=== PATIENT | female | born 1945 | race Hispanic/Latino ===

== ENCOUNTER → 2018-01-30 | Outpatient (CLI) | payer OTHER ==
[~2018-01-30] MED LIST: ATOR10 PO; LATA2.5D2 OP; LISI-613 PO; [UNRECOGNIZED DRUG - CODE] PO; [UNRECOGNIZED DRUG - OTHER] PO
== END | disposition home or self-care (01) ==
LOC: SHCH 15:18
PROVIDERS: ATTEND Internal Medicine Cardiovascular Disease
DX: I50.9 Heart failure, unspecified (principal); I34.0 Nonrheumatic mitral (valve) insufficiency
CPT/HCPCS: 93306

== ENCOUNTER → 2018-02-13 | Outpatient (CLI) | payer OTHER | END | disposition home or self-care (01) | LOC: SHCH 12:56 | PROVIDERS: ATTEND Internal Medicine Cardiovascular Disease | DX: I87.2 Venous insufficiency (chronic) (peripheral) (principal) | CPT/HCPCS: 93970 ==

== ENCOUNTER → 2018-11-20 | Outpatient (CLI) | payer OTHER | END | disposition home or self-care (01) | LOC: RAH 14:59 | PROVIDERS: ATTEND Family Medicine | DX: Z12.31 Encounter for screening mammogram for malignant neoplasm of breast (principal) | CPT/HCPCS: 77067 ==

== ENCOUNTER → 2019-10-22 | Outpatient (CLI) | payer OTHER, MEDICARE ==
[~2019-10-22] MED LIST changes: +AMLO5TAB9 PO; -ATOR10 PO; -LISI-613 PO; +METF-805 PO; +NITR100C4 PO; -[UNRECOGNIZED DRUG - OTHER] PO
== END | disposition home or self-care (01) ==
LOC: RAH 07:55
PROVIDERS: ATTEND Internal Medicine Gastroenterology
DX: R16.0 Hepatomegaly, not elsewhere classified (principal); K76.0 Fatty (change of) liver, not elsewhere classified; N28.1 Cyst of kidney, acquired; Z90.49 Acquired absence of other specified parts of digestive tract
CPT/HCPCS: 76700

== ENCOUNTER → 2020-10-31 | Outpatient (CLI) | payer OTHER ==
[~2020-10-31] MED LIST changes: +AMLO-257 PO; -AMLO5TAB9 PO; +LATA2.5D14 OP; -LATA2.5D2 OP; -METF-805 PO; +METF-890 PO
== END | disposition home or self-care (01) ==
LOC: RAH 10:00
PROVIDERS: ATTEND Internal Medicine Cardiovascular Disease
DX: Z13.6 Encounter for screening for cardiovascular disorders (principal)
CPT/HCPCS: 75571

== ENCOUNTER → 2020-11-23 | Outpatient (CLI) | payer OTHER | END | disposition home or self-care (01) | LOC: RAH 14:58 | PROVIDERS: ATTEND Internal Medicine Cardiovascular Disease | DX: Z13.6 Encounter for screening for cardiovascular disorders (principal); I25.10 Atherosclerotic heart disease of native coronary artery without angina pectoris | CPT/HCPCS: 75571 ==

== ENCOUNTER → 2021-01-01 | Outpatient (CLI) | payer OTHER ==
[~2021-01-01] VITALS: Ht 152.4 cm; Wt 76.2 kg
[~2021-01-01] MED LIST changes: +REGADENOSON 0.4 MG/5 ML PF SYG IVP SCH
== END | disposition home or self-care (01) ==
LOC: SHCH 08:30
PROVIDERS: ATTEND Internal Medicine Cardiovascular Disease
DX: I25.10 Atherosclerotic heart disease of native coronary artery without angina pectoris (principal)
CPT/HCPCS: 78452; 93017; 96374; A9500 ×2

== ENCOUNTER 2021-03-05 09:18 | Observation (INO) | payer OTHER ==
[2021-03-01 10:03] LABS: APPEARANCE,URINE Clear (CLEAR); BILIRUBIN,URINE Negative (NEGATIVE); COLOR,URINE Yellow (YELLOW); GLUCOSE, URINE (UA) Negative (NEGATIVE); KETONES,URINE Negative (NEGATIVE); LEUKOCYTE ESTERASE ,URINE Trace (NEGATIVE); NITRATE,URINE Negative (NEGATIVE); OCCULT BLOOD,URINE Negative (NEGATIVE); PROTEIN,URINE Negative (NEGATIVE); UROBILINOGEN,URINE 0.2 mg/dL (0.2-1.0)
[2021-03-01 10:05] LABS: CREATININE 0.6 mg/dL (0.5-1.5); POTASSIUM 3.9 mmol/L (3.5-5.1)
[2021-03-01 10:23] LABS: INR 1.01 (0.85-1.15)
[2021-03-01 11:15] LABS: BACTERIA,URINE Rare /HPF (None Seen); RBC,URINE None Seen /HPF (0-1); SQUAMOUS EPITHELIAL CELL,UR Rare /HPF (0-2)
[2021-03-02 15:40] VITALS: BP 175/87
[~2021-03-05] VITALS: Ht 152.4 cm; Wt 74.8 kg
[2021-03-05] VITALS (17 sets, daily range): BP systolic 113–155; BP diastolic 54–76
[~2021-03-05 09:18] MED LIST changes: +ALEN70TA80 PO; -LATA2.5D14 OP; +LISI-809 PO; -NITR100C4 PO; +PILO15DR48 OS; -REGADENOSON 0.4 MG/5 ML PF SYG IVP SCH; -[UNRECOGNIZED DRUG - CODE] PO; +[UNRECOGNIZED DRUG - OTHER] PO
[2021-03-05] MEDS ORDERED: 0.9%NACL 1000ML 1,000 ML IV ONE (10:07)
[2021-03-05] MEDS: CEFAZOLIN SODIUM 1 GM VIAL IVP SCH ×4 (10:37→20:24)
[2021-03-05] MEDS ORDERED: ONDANSETRON 4MG INJ ONE (12:39)
[2021-03-05] MEDS ORDERED: LIDOCAINE PF 100MG/5ML (2%) SYRINGE 5ML ONE (12:39)
[2021-03-05] MEDS ORDERED: DEXAMETHASONE SOD PHOSPHATE 10MG/ML 1ML VIAL ONE (12:39)
[2021-03-05] MEDS ORDERED: GLYCOPYRROLATE 1 MG/5 ML SYRINGE ONE (12:39)
[2021-03-05] MEDS ORDERED: PROPOFOL 10 MG/ML 20ML VIAL IV ONE (12:39)
[2021-03-05] MEDS ORDERED: SUCCINYLCHOLINE CHLORIDE 20 MG/ML 10 ML VIAL ONE (12:39)
[2021-03-05] MEDS ORDERED: MIDAZOLAM HCL 1 MG/ML 2ML VIAL ONE (12:40)
[2021-03-05] MEDS ORDERED: FENTANYL CITRATE PF 50 MCG/1 ML 2ML VIAL ONE ×2 (12:40→15:17)
[2021-03-05] MEDS ORDERED: NEOSTIGMINE 5MG/5ML SYR IV ONE (12:40)
[2021-03-05] MEDS ORDERED: ROCURONIUM 10MG/1ML SYR 10 MG/ML ML ONE ×2 (12:40→15:11)
[2021-03-05] MEDS ORDERED: ROPIVACAINE 0.5% 5MG/ML 30ML IJ ONE (12:42)
[2021-03-05] MEDS ORDERED: TRANEXAMIC ACID 1000MG/10ML ONE ×2 (13:26→17:19)
[2021-03-05] MEDS ORDERED: CEFAZOLIN SODIUM 1 GM VIAL ONE ×2 (13:26→19:44)
[2021-03-05] MEDS ORDERED: OXYMETAZOLINE HCL SPRAY 15 ML BOTTLE ONE (15:16)
[2021-03-05] MEDS ORDERED: CALCIUM CARB 500MG PO PRN (16:45)
[2021-03-05] MEDS ORDERED: TRAMADOL HCL 50 MG TABLET PO PRN (16:45)
[2021-03-05] MEDS ORDERED: OXYCODONE HCL 5 MG TAB PO PRN ×2 (16:45)
[2021-03-05] MEDS ORDERED: TEMAZEPAM 15 MG CAPSULE PO PRN (16:45)
[2021-03-05] MEDS ORDERED: POTASSIUM CHLORIDE 20MEQ/100ML 100 ML IV PRN (16:45)
[2021-03-05] MEDS ORDERED: ONDANSETRON 4MG INJ IVP PRN (16:45)
[2021-03-05] MEDS ORDERED: POTASSIUM CHLORIDE 10% ELIXIR 20 MEQ/15 ML UDCUP PO PRN (16:45)
[2021-03-05] MEDS ORDERED: DiphenhydrAMINE HCL 50 MG/ML VIAL IVP PRN (16:45)
[2021-03-05] MEDS ORDERED: FERROUS FUMARATE 324 MG TABLET PO PRN (16:45)
[2021-03-05] MEDS ORDERED: KETOROLAC 15MG/ML VIAL (15MG/ML) IV PRN (16:45)
[2021-03-05] MEDS ORDERED: LIDOCAINE HCL-MPF 1% 2ML VIAL IV PRN (16:45)
[2021-03-05] MEDS ORDERED: KCL 20 MEQ ERTAB PO PRN (16:45)
[2021-03-05] MEDS ORDERED: 0.9%NACL 1000ML 1,000 ML IV SCH (16:45)
[2021-03-05] MEDS ORDERED: MEPERIDINE-PF 25 MG/ML SYG ONE ×2 (17:20→17:31)
[2021-03-05] MEDS: CELECOXIB 200 MG CAP PO SCH (20:33)
[2021-03-05] MEDS: NITROFURANTOIN MONOHYD/M-CRYST 100 MG CAPSULE PO SCH (20:33)
[2021-03-05] MEDS: FAMOTIDINE 20MG TAB PO SCH (20:33)
[2021-03-05] MEDS: ASPIRIN 81MG CHEW TAB PO SCH (20:33)
[2021-03-05] MEDS: PREGABALIN 25 MG CAP PO SCH (20:33)
[2021-03-05] MEDS: ACETAMINOPHEN 500 MG TABLET PO SCH (20:34)
[2021-03-05] MEDS: INSULIN HUMULIN R 100 UNIT/ML 3ML SQ SCH (20:34)
[2021-03-05] MEDS: PILOCARPINE HCL 2% 15 ML DROPS OS SCH (20:41)
[2021-03-05] MEDS: METFORMIN HCL 500 MG TAB.SR.24H PO SCH (20:41)
[2021-03-06] MEDS: ACETAMINOPHEN 500 MG TABLET PO SCH ×4 (00:08→23:11)
[2021-03-06] MEDS: CEFAZOLIN SODIUM 1 GM VIAL IVP SCH (05:45)
[2021-03-06 06:34] VITALS: BP 113/53
[2021-03-06] MEDS: INSULIN HUMULIN R 100 UNIT/ML 3ML SQ SCH ×4 (06:34→19:44)
[2021-03-06 06:36] LABS: CREATININE 0.7 mg/dL (0.5-1.5); POTASSIUM 4.2 mmol/L (3.5-5.1)
[2021-03-06 06:47] LABS: MEAN CORPUSCULAR HEMOGLOBIN 30.9 pg (27.0-33.0); MEAN CORPUSCULAR HGB CONC 33.9 g/dL (32.0-36.0); MEAN CORPUSCULAR VOLUME 91.2 fL (79-99); RED BLOOD CELL COUNT(AUTO) 3.62 MIL/uL (4.00-5.50); RED CELL DISTRIBUTION WIDTH 12.5 % (11.0-15.5); WHITE BLOOD COUNT (AUTO) 9.3 K/uL (4.8-10.8)
[2021-03-06 08:00] VITALS: BP 130/61
[2021-03-06] MEDS: [UNRECOGNIZED DRUG - OTHER] PO SCH (09:00)
[2021-03-06] MEDS: CELECOXIB 200 MG CAP PO SCH ×2 (09:50→20:13)
[2021-03-06] MEDS: PREGABALIN 25 MG CAP PO SCH ×2 (09:50→20:14)
[2021-03-06] MEDS: LISINOPRIL 5 MG TABLET PO SCH (09:51)
[2021-03-06] MEDS: AMLODIPINE 5 MG TAB PO SCH (09:51)
[2021-03-06] MEDS: ASPIRIN 81MG CHEW TAB PO SCH ×2 (09:51→20:13)
[2021-03-06] MEDS: FAMOTIDINE 20MG TAB PO SCH ×2 (09:52→20:14)
[2021-03-06] MEDS: NITROFURANTOIN MONOHYD/M-CRYST 100 MG CAPSULE PO SCH ×2 (09:52→20:14)
[2021-03-06] MEDS: POLYETHYLENE GLYCOL 3350 17 GM POWD.PACK PO SCH (09:52)
[2021-03-06] MEDS: PILOCARPINE HCL 2% 15 ML DROPS OS SCH ×4 (09:53→20:14)
[2021-03-06 12:00] VITALS: BP 115/46
[2021-03-06 16:00] VITALS: BP 137/46
[2021-03-06 20:09] VITALS: BP 127/52
[2021-03-06] MEDS: METFORMIN HCL 500 MG TAB.SR.24H PO SCH (20:13)
[2021-03-06 23:29] VITALS: BP 129/53
[2021-03-07 04:12] VITALS: BP 129/49
[2021-03-07] MEDS: ACETAMINOPHEN 500 MG TABLET PO SCH (05:07)
[2021-03-07] MEDS: INSULIN HUMULIN R 100 UNIT/ML 3ML SQ SCH ×2 (05:27→11:30)
[2021-03-07 07:19] VITALS: BP 138/46
[2021-03-07] MEDS: FAMOTIDINE 20MG TAB PO SCH (08:40)
[2021-03-07] MEDS: ASPIRIN 81MG CHEW TAB PO SCH (08:41)
[2021-03-07] MEDS: [UNRECOGNIZED DRUG - OTHER] PO SCH (08:41)
[2021-03-07] MEDS: POLYETHYLENE GLYCOL 3350 17 GM POWD.PACK PO SCH (08:41)
[2021-03-07] MEDS: CELECOXIB 200 MG CAP PO SCH (08:41)
[2021-03-07] MEDS: NITROFURANTOIN MONOHYD/M-CRYST 100 MG CAPSULE PO SCH (08:41)
[2021-03-07] MEDS: PREGABALIN 25 MG CAP PO SCH (08:41)
[2021-03-07] MEDS: LISINOPRIL 5 MG TABLET PO SCH (08:43)
[2021-03-07] MEDS: PILOCARPINE HCL 2% 15 ML DROPS OS SCH ×2 (08:43→11:33)
[2021-03-07] MEDS: AMLODIPINE 5 MG TAB PO SCH (08:43)
[2021-03-07 11:22] VITALS: BP 130/64
[2021-03-07] MEDS ORDERED: HYDR-4060 PO (12:23)
[2021-03-07] MEDS ORDERED: NITR100C4 PO (12:23)
[2021-03-07] MEDS ORDERED: ASPI-1005 PO (12:23)
[2021-03-07 16:15] VITALS: BP 137/61
[2021-03-08] MEDS ORDERED: BISACODYL 10 MG SUPP.RECT RC PRN (16:45)
== END 2021-03-07 18:01 | disposition home health service (06) ==
LOC: DAH 09:18 → DAHIP 09:19 → 4AH 18:31
PROVIDERS: ADMIT Orthopaedic Surgery; ATTEND Orthopaedic Surgery
DX: M17.11 Unilateral primary osteoarthritis, right knee (principal); I25.10 Atherosclerotic heart disease of native coronary artery without angina pectoris; I10 Essential (primary) hypertension; E78.00 Pure hypercholesterolemia, unspecified; D64.9 Anemia, unspecified; N39.0 Urinary tract infection, site not specified; Z90.710 Acquired absence of both cervix and uterus; Z79.899 Other long term (current) drug therapy
CPT/HCPCS: 27447; 36415 ×2; 80048 ×2; 81001; 82948 ×10; 85027; 85610; 87077; 87088; 87186; 87635; 87641; 96360; 96361; 97039 ×4; 97116 ×4; 97161; 97530 ×4; A4215; A4216; A4221; A4222; A4223 ×2; A4649 ×3; A4663; A4930; A9272; C1776; C9803; G0378 ×54; G8978; G8979; G8980; G8981; G8982; G8983; J0330; J0690 ×5; J1100; J2001; J2175 ×2; J2250; J2405; J2704; J2710; J2795; J3010 ×2; J3490 ×3; J7030; J7120

== ENCOUNTER → 2021-06-27 | Outpatient (CLI) | payer OTHER ==
[~2021-06-27] MED LIST changes: +ALBUTEROL 0.083% 2.5 MG/3 ML INH IH ONE; +ASPI-1005 PO; +HYDR-4060 PO; +NITR100C4 PO
== END | disposition home or self-care (01) ==
LOC: RESP 10:24
PROVIDERS: ATTEND Internal Medicine Cardiovascular Disease
DX: R06.09 Other forms of dyspnea (principal)
CPT/HCPCS: 94060; 94727; 94729

== ENCOUNTER → 2022-01-10 | Outpatient (CLI) | payer OTHER ==
[~2022-01-10] MED LIST changes: -ALBUTEROL 0.083% 2.5 MG/3 ML INH IH ONE; -LISI-809 PO; +LISI5TAB21 PO
== END | disposition home or self-care (01) ==
LOC: RAH 13:55
PROVIDERS: ATTEND Family Medicine
DX: Z12.31 Encounter for screening mammogram for malignant neoplasm of breast (principal)
CPT/HCPCS: 77067

== ENCOUNTER 2023-03-16 07:55 | Emergency (ER) | payer OTHER ==
[~2023-03-16] VITALS: Ht 152.4 cm; Wt 76.2 kg
[2023-03-16 08:45] LABS: BASOPHILS % (AUTO) 0.2 % (0.0-5.0); EOSINOPHILS % (AUTO) 0.9 % (0.0-8.0); HEMATOCRIT 39.5 % (36-48); LYMPHOCYTES % (AUTO) 36.5 % (21.0-51.0); MEAN CORPUSCULAR HEMOGLOBIN 30.8 pg (27.0-33.0); MEAN CORPUSCULAR HGB CONC 33.9 g/dL (32.0-36.0); MEAN CORPUSCULAR VOLUME 90.8 fL (79-99); MONOCYTES % (AUTO) 7.7 % (3.0-13.0); NEUTROPHILS % (AUTO) 54.4 % (40.0-77.0); PLATELET COUNT (AUTO) 281 K/uL (130-400); RED BLOOD CELL COUNT(AUTO) 4.35 MIL/uL (4.00-5.50); RED CELL DISTRIBUTION WIDTH 12.7 % (11.0-15.5); WHITE BLOOD COUNT (AUTO) 5.7 K/uL (4.8-10.8)
[2023-03-16 08:46] LABS: APPEARANCE,URINE CLEAR (CLEAR); BILIRUBIN,URINE NEGATIVE (NEGATIVE); COLOR,URINE COLORLESS (YELLOW); GLUCOSE, URINE (UA) NEGATIVE (NEGATIVE); KETONES,URINE NEGATIVE (NEGATIVE); LEUKOCYTE ESTERASE ,URINE NEGATIVE Leu/uL (NEGATIVE); NITRATE,URINE NEGATIVE (NEGATIVE); OCCULT BLOOD,URINE NEGATIVE (NEGATIVE); PH,URINE 6.5 (5.0-8.0); PROTEIN,URINE NEGATIVE (NEGATIVE); UROBILINOGEN,URINE 0.2 mg/dL (0.2-1.0)
[2023-03-16 09:00] LABS: ALANINE AMINOTRANSFERASE 36 U/L (12-78); ALBUMIN 4.1 g/dL (3.5-5.0); ASPARTATE AMINOTRANSFERASE 24 U/L (10-37); CARBON DIOXIDE 32 mmol/L (21-32); CHLORIDE 100 mmol/L (101-111); CREATININE 0.7 mg/dL (0.5-1.5); GLOMERULAR FILTR. RATE CALC 89 mL/min (>90); GLUCOSE,RANDOM 163 mg/dL (70-105); LIPASE 178 U/L (114-286); POTASSIUM 4.2 mmol/L (3.5-5.1); SODIUM SERUM 139 mmol/L (136-145); TOTAL PROTEIN, SERUM 7.9 g/dL (6.0-8.3); UREA NITROGEN, BLOOD 19 mg/dL (7-18)
[2023-03-16 09:02] LABS: CRP QUANTITATIVE < 2.00 mg/L (0.00-9.0)
[2023-03-16 11:32] VITALS: BP 150/76
== END 2023-03-16 11:31 | disposition home or self-care (01) ==
LOC: EDH 07:55
DX: M79.10 Myalgia, unspecified site (principal); K30 Functional dyspepsia; I10 Essential (primary) hypertension; E11.59 Type 2 diabetes mellitus with other circulatory complications; E78.00 Pure hypercholesterolemia, unspecified; M19.90 Unspecified osteoarthritis, unspecified site; Z20.822 Contact with and (suspected) exposure to COVID-19; Z79.82 Long term (current) use of aspirin; Z79.84 Long term (current) use of oral hypoglycemic drugs; Z79.899 Other long term (current) drug therapy; Z90.710 Acquired absence of both cervix and uterus; Z90.49 Acquired absence of other specified parts of digestive tract
CPT/HCPCS: 99284; 70450; 87635; 80053; 83690; 85025; 87804 ×2; 86140; 81003; 36415; C9803

== ENCOUNTER 2023-08-30 16:57 | Emergency (ER) | payer OTHER ==
[~2023-08-30] VITALS: Ht 152.4 cm; Wt 77.1 kg
[2023-08-30 17:20] LABS: APPEARANCE,URINE CLEAR (CLEAR); BILIRUBIN,URINE NEGATIVE (NEGATIVE); GLUCOSE, URINE (UA) >=1000 mg/dL (NEGATIVE); KETONES,URINE NEGATIVE (NEGATIVE); LEUKOCYTE ESTERASE ,URINE NEGATIVE Leu/uL (NEGATIVE); NITRATE,URINE NEGATIVE (NEGATIVE); OCCULT BLOOD,URINE NEGATIVE (NEGATIVE); PH,URINE 5.5 (5.0-8.0); PROTEIN,URINE NEGATIVE (NEGATIVE); UROBILINOGEN,URINE 0.2 mg/dL (0.2-1.0)
[2023-08-30 17:21] LABS: ADD UA MICROSCOPIC YES; COLOR,URINE LIGHT-YELLOW (YELLOW)
[2023-08-30 17:22] LABS: RBC,URINE 0-1 /HPF (0-1); SQUAMOUS EPITHELIAL CELL,UR RARE /HPF (0-2); WBC,URINE 0-1 /HPF (0-1)
[2023-08-30 17:26] LABS: BASOPHILS # (AUTO) 0.01 K/uL (0.00-0.20); BASOPHILS % (AUTO) 0.2 % (0.0-5.0); EOSINOPHILS # (AUTO) 0.06 K/uL (0.00-0.70); EOSINOPHILS % (AUTO) 1.1 % (0.0-8.0); HEMATOCRIT 39.1 % (36-48); IMMATURE GRANULOCYTE ABSOLUTE 0.01 K/uL (0-1); LYMPHOCYTES # (AUTO) 1.8 K/uL (1.0-4.8); LYMPHOCYTES % (AUTO) 33.4 % (21.0-51.0); MEAN CORPUSCULAR HEMOGLOBIN 31.1 pg (27.0-33.0); MEAN CORPUSCULAR HGB CONC 34.3 g/dL (32.0-36.0); MEAN CORPUSCULAR VOLUME 90.7 fL (79-99); MONOCYTES # (AUTO) 0.4 K/uL (0.1-1.0); MONOCYTES % (AUTO) 7.2 % (3.0-13.0); NEUTROPHILS # (AUTO) 3.2 K/uL (1.8-7.7); NEUTROPHILS % (AUTO) 57.9 % (40.0-77.0); PLATELET COUNT (AUTO) 248 K/uL (130-400); RED BLOOD CELL COUNT(AUTO) 4.31 MIL/uL (4.00-5.50); RED CELL DISTRIBUTION WIDTH 12.5 % (11.0-15.5); WHITE BLOOD COUNT (AUTO) 5.5 K/uL (4.8-10.8)
[2023-08-30 17:36] LABS: CREATININE 0.9 mg/dL (0.5-1.5); POTASSIUM 3.8 mmol/L (3.5-5.1)
[2023-08-30 17:41] LABS: ALBUMIN 3.9 g/dL (3.5-5.0); BILIRUBIN,TOTAL 0.3 mg/dL (0.2-1.0); TOTAL PROTEIN, SERUM 7.5 g/dL (6.0-8.3)
[2023-08-30 17:58] VITALS: BP 171/65; PULSE 62; RESP 16; O2SAT 95
[2023-08-30] MEDS ORDERED: MECLIZINE HCL 25 MG TABLET PO ONE (18:00)
[2023-08-30] MEDS ORDERED: DEXAMETHASONE SOD PHOSPHATE 4 MG/ML 1ML VIAL IVP ONE (18:00)
[2023-08-30] MEDS ORDERED: MECL-302 PO (18:50)
== END 2023-08-30 18:56 | disposition home or self-care (01) ==
LOC: EDH 16:57
DX: H81.13 Benign paroxysmal vertigo, bilateral (principal); R81 Glycosuria; E86.0 Dehydration; E11.9 Type 2 diabetes mellitus without complications; E78.00 Pure hypercholesterolemia, unspecified; I10 Essential (primary) hypertension; Z79.82 Long term (current) use of aspirin; Z90.49 Acquired absence of other specified parts of digestive tract
CPT/HCPCS: 99285; 96374; 71045; 84484; 80053; 85025; 81001; 36415; 93005; J1100

== ENCOUNTER → 2023-11-04 | Outpatient (CLI) | payer OTHER ==
[~2023-11-04] MED LIST changes: +MECL-302 PO
[2023-11-04] MEDS: REGADENOSON 0.4 MG/5 ML PF SYG IVP ONE (15:57)
== END | disposition home or self-care (01) ==
LOC: SHCH 07:39
PROVIDERS: ATTEND Internal Medicine Cardiovascular Disease
DX: R07.89 Other chest pain (principal); I25.10 Atherosclerotic heart disease of native coronary artery without angina pectoris
CPT/HCPCS: 78452; 96374; 93017; J2785; A9500 ×2

== ENCOUNTER → 2025-04-26 | Outpatient (CLI) | payer OTHER ==
[~2025-04-26] MED LIST changes: +METF-1150 PO; -METF-890 PO
--- NOTE | 2025-05-03 15:37 | HMCIMG ---
CLINICAL INDICATION: Asymptomatic menopausal state COMPARISON: None available TECHNIQUE: Bone densitometry is performed of the lumbar spine and left hip. FINDINGS: Total BMD of lumbar spine is 1.090 g/cm2 with a T-score of 0.4 and Z-score is 3.1. Total BMD of left hip is 0.881 g/cm2 with a T-score of -0.6 and Z-score is 1.4. FRAX SCORE: The 10 year fracture risk for a major osteoporotic fracture and hip fracture T score at or above -1.0. Patient. Treated for osteoporosis IMPRESSION: 1. Normal lumbar spine and left hip 2. I would recommend follow-up in 13 months World Health Organization criteria for BMD interpretation classify patients as Normal (T-score at or above -1.0), Osteopenic (T-score between -1.0 and -2.5), or Osteoporotic (T-score at or below -2.5). FRAX SCORE: A. All treatment decisions require clinical judgment and consideration of individual patient factors, including patient preferences, comorbidities, previous drug use, risk factors not captured in the FRAX model (e.g., frailty, falls, vitamin D deficiency, increased bone turnover, interval significant decline in bone density) and possible [id number]-estimation of fracture risk by FRAX. B. In addition, the NOF Guide recommends that FDA-approved medical therapies be considered in postmenopausal women and men age greater than or equal to 50 years with a: i. Hip or vertebral (clinical or morphometric) fracture. ii. T-score of less than or equal to -2.5 at the spine or hip. iii. Ten-year fracture probability by FRAX of greater than or equal to 3% for hip fracture of greater than or equal to 20% for major osteoporotic fracture.
== END | disposition home or self-care (01) ==
LOC: RAH 09:46
PROVIDERS: ATTEND Family Medicine
DX: Z13.820 Encounter for screening for osteoporosis (principal); Z78.0 Asymptomatic menopausal state
CPT/HCPCS: 77080

== ENCOUNTER → 2025-05-12 | Outpatient (CLI) | payer OTHER ==
--- NOTE | 2025-05-12 13:18 | HMCIMG ---
DOUBLE CONTRAST UPPER GI SERIES: Finding: The study was performed using provocative maneuvers After swallowing effervescent crystal and thick barium, there is no definite intrinsic or extrinsic lesion seen in the esophagus. There is a moderate-sized hiatal hernia with esophageal reflux grade 1. The stomach is normal in size, shape, and configuration.The rugal folds appear to be normal. The duodenal bulb, duodenal sweep, and upper jejunum appear to be normal. There are surgical clips in the right upper quadrant from prior cholecystectomy. Fluoroscopy time: 1.0 minutes IMPRESSION: Moderate size hiatal hernia with grade 1 esophageal reflux Otherwise NORMAL DOUBLE CONTRAST UPPER GI SERIES.
== END | disposition home or self-care (01) ==
LOC: RAH 08:21
PROVIDERS: ATTEND Internal Medicine Gastroenterology
DX: K21.00 Gastro-esophageal reflux disease with esophagitis, without bleeding (principal); K44.9 Diaphragmatic hernia without obstruction or gangrene; K59.04 Chronic idiopathic constipation; R10.13 Epigastric pain; R11.0 Nausea; Z90.49 Acquired absence of other specified parts of digestive tract
CPT/HCPCS: 74240